=== PATIENT | female | born 1930 | race Caucasian/White ===

== ENCOUNTER 2019-04-11 10:17 | Emergency (ER) | payer OTHER ==
[2019-04-11] MEDS ORDERED: NA CHLORIDE 0.9% 1,000 ML ONE (11:18)
[2019-04-11] MEDS ORDERED: AMOX/K CLAV 875 MG TAB ONE (11:18)
[2019-04-11 11:33] LABS: Absolute Lymphocytes (CBC) 1.1 K/uL (0.7-4.9); Basophils % 0.5 % (0-1.3); Hematocrit 34.2 % (36.0-45.0); Lymphocytes % 8.2 % (15.3-44.8); MPV 8.4 fL (7.6-11.3); RBC Red Blood Cell Count 3.77 M/uL (3.86-4.86)
[2019-04-11 11:49] LABS: Albumin 3.2 g/dL (3.4-5.0); Bilirubin Total 1.1 mg/dL (0.2-1.0); Potassium 4.1 mmol/L (3.5-5.1); Protein, Total 8.1 g/dL (6.4-8.2)
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
--- NOTE | 2019-04-11 12:02 | EDPHYS ---
Physician Documentation [facility] Name: Bibi Saucedo Age: 88 yrs Sex: Female : 1930 Arrival Date: 04/11/2019 Time: 10:20 Bed 15 Private MD: Zac Price C ED Physician Herlinda Chowdhury HPI: 04/11 11:57 This 88 yrs old Female presents to ER via Wheelchair with complaints of ma2 Toothache, Vomiting. 11:57 The patient presents with pain, swelling. Onset: The symptoms/episode began/occurred ma2 gradually, 1 day(s) ago. Associated signs and symptoms: Pertinent negatives: chills, fever. Severity of symptoms: At their worst the symptoms were mild. Historical: - Allergies: 10:41 No Known Allergies; iw - Home Meds: 10:41 unknown BP meds [Active]; iw - PMHx: 10:41 Hypertension; iw - PSHx: 10:41 AAA repair; iw - Immunization history:: Adult Immunizations not up to date. - Coronavirus screen:: The patient has NOT traveled to [place], [place], or [place] in the past 14 days. Proceed with normal triage process as indicated. - Social history:: Smoking status: Patient denies any tobacco usage or history of. - Family history:: not pertinent. - Ebola Screening: : Patient negative for fever greater than or equal to 101.5 degrees Fahrenheit, and additional compatible Ebola Virus Disease symptoms Patient denies exposure to infectious person Patient denies travel to an Ebola-affected area in the 21 days before illness onset No symptoms or risks identified at this time. - Hospitalizations: : No recent hospitalization is reported. ROS: 11:57 Constitutional: Negative for fever, chills, and weight loss. ma2 11:57 All other systems are negative. Exam: 11:57 Constitutional: This is a well developed, well nourished patient who is awake, alert, ma2 and in no acute distress. Head/Face: Normocephalic, atraumatic. Eyes: Pupils equal round and reactive to light, extra-ocular motions intact. Lids and lashes normal. Conjunctiva and sclera are non-icteric and not injected. Cornea within normal limits. Periorbital areas with no swelling, redness, or edema. ENT: dental caris and left upper dental abscess and gum abscess, Nares patent. No nasal discharge, no septal abnormalities noted. Tympanic membranes are normal and external auditory canals are clear. Oropharynx with no redness, swelling, or masses, exudates, or evidence of obstruction, uvula midline. Mucous membranes moist. Neck: Trachea midline, no thyromegaly or masses palpated, and no cervical lymphadenopathy. Supple, full range of motion without nuchal rigidity, or vertebral point tenderness. No Meningismus. Chest/axilla: Normal chest wall appearance and motion. Nontender with no deformity. No lesions are appreciated. Cardiovascular: Regular rate and rhythm with a normal S1 and S2. No gallops, murmurs, or rubs. Normal PMI, no JVD. No pulse deficits. Respiratory: Lungs have equal breath sounds bilaterally, clear to auscultation and percussion. No rales, rhonchi or wheezes noted. No increased work of breathing, no retractions or nasal flaring. Abdomen/GI: Soft, non-tender, with normal bowel sounds. No distension or tympany. No guarding or rebound. No evidence of tenderness throughout. Vital Signs: 10:41 BP 122 / 71; Pulse 93; Resp 16; Temp 97.3; Pulse Ox 94% on R/A; Weight 68.04 kg; Height iw 5 ft. 2 in. (157.48 cm); Pain 0/10; 10:41 Body Mass Index 27.44 (68.04 kg, 157.48 cm) iw MDM: 10:46 Patient medically screened. ma2 11:57 Differential diagnosis: dental caries, dental abscess, gingivostomatitis. Data ma2 reviewed: vital signs, nurses notes. Counseling: I had a detailed discussion with the patient and/or guardian regarding: the historical points, exam findings, and any diagnostic results supporting the discharge/admit diagnosis, the presence of at least one elevated blood pressure reading (>120/80) during this emergency department visit, the need to transfer to another facility. Response to treatment: the patient's symptoms have mildly improved after treatment. ED course: discussed with dr. vanegas office balbir talked to him and advised to send her to the office . 04/11 11:06 Order name: CBC with Diff ma2 04/11 11:06 Order name: CMP ma2 04/11 11:34 Order name: CBC with Automated Diff; Complete Time: 12:01 EDMS 04/11 11:49 Order name: Comprehensive Metabolic Panel; Complete Time: 12:01 EDWV Administered Medications: 11:18 Drug: Augmentin 875 mg Route: PO; ca1 11:20 Drug: NS 0.9% 1000 ml Route: IV; Rate: 1 bolus; Site: right antecubital; ca1 Disposition: 04/11/19 12:00 Discharged to Home. Impression: Dental root caries, Dental caries - with dental abscess. - Condition is Stable. - Discharge Instructions: Dental Abscess, Dental Caries, Adult. - Prescriptions for Augmentin 875- 125 mg Oral Tablet - take 1 tablet by ORAL route every 12 hours for 10 days; 20 tablet. Tylenol- Codeine #3 300-30 mg Oral Tablet - take 2 tablet by ORAL route every 6 hours As needed; 30 tablet. - Medication Reconciliation Form, Thank You Letter, Antibiotic Education, Prescription Opioid Use form. - Follow up: Kumar Vanegas DDS; When: Today; Reason: Continuance of care. Signatures: Dispatcher [employer] EDRadha Overton RN RN Herlinda Chowdhury MD MD ma2 Krista Whittington RN RN ca1 Corrections: (The following items were deleted from the chart) 12:44 12:00 04/11/2019 12:00 Discharged to Home. Impression: Dental root caries; Dental ca1 caries - with dental abscess. Condition is Stable. Forms are Medication Reconciliation Form, Thank You Letter, Antibiotic Education, Prescription Opioid Use. Follow up: Kumar Vanegas; When: Today; Reason: Continuance of care. ma2
[2019-04-11 13:26] VITALS: BP 122/71; TEMP 97.3; O2SAT 94
== END 2019-04-11 12:44 | disposition home or self-care (01) ==
LOC: ER 10:17
DX: K04.7 Periapical abscess without sinus (principal); I10 Essential (primary) hypertension; K02.9 Dental caries, unspecified
CPT/HCPCS: 85025; 36415; 80053; 99284; J7030